=== PATIENT | female | born 1960 | race Two or more races ===

== ENCOUNTER → 2025-05-22 | Outpatient (CLI) | payer MEDICAID, SELFPAY ==
--- NOTE | 2025-05-22 09:15 | XR_ITS ---
Examination: Retroperitoneal ultrasound, complete Technique: Multiple high resolution grayscale images of the retroperitoneum obtained, including kidneys and bladder. Exam date and time:May 22, 2025 0955 hours INDICATIONS: Urinary tract infections several years, kidney transplant 2003 FINDINGS: Negative kidneys not visualized Transplant kidney 11.9 cm renal cortex 2.7 cm, mildly prominent renal artery and renal vein 4 mm calculus IMPRESSION: Mild hydronephrosis of the renal transplant
== END | disposition home or self-care (01) ==
LOC: CDIM 09:07
PROVIDERS: PCP Family Medicine; Referring Provider Surgery; Visit Provider Surgery
DX: N13.30 Unspecified hydronephrosis (principal); Z94.0 Kidney transplant status
CPT/HCPCS: 76770

== ENCOUNTER → 2025-05-29 | Outpatient (CLI) | payer MEDICAID, SELFPAY ==
--- NOTE | 2025-05-29 15:28 | XR_ITS ---
Examination: Abdomen AP single view Technique: AP portable supine abdomen, single view Exam date and time: May 29, 2025 8 hours Indications: Flank pain with urination. Findings: Calcific density lateral to L4, 7 mm suspicious for left renal calculus No bladder calculi Moderate stool throughout the colon Impression: Suspicious for proximal left ureteral calculus
== END | disposition home or self-care (01) ==
PROVIDERS: PCP Family Medicine; Referring Provider Surgery; Visit Provider Surgery
DX: N28.9 Disorder of kidney and ureter, unspecified (principal)
CPT/HCPCS: 74018